=== PATIENT | male | born 1955 | race Two or more races ===

== ENCOUNTER 2016-07-26 09:54 | Emergency (ER) | payer OTHER ==
[2016-07-26 10:41] LABS: HEMATOCRIT 46.8 % (40.0-51.0); HEMOGLOBIN 16.1 g/dL (13.7-17.5); MEAN CELL HEMOGLOBIN 28.2 pg (27.9-34.1); MEAN CELL HEMOGLOBIN CONCENTR. 34.4 g/dL (32.4-36.7); RED BLOOD CELL COUNT 5.71 10^6/uL (4.40-6.38); RED CELL DISTRIBUTION WIDTH 12.7 % (11.5-15.2)
[2016-07-26] MEDS: MECLIZINE HCL 25 MG TAB PO ONE ×2 (10:58→11:16)
[2016-07-26 11:01] LABS: ALANINE AMINOTRANSFERASE 47 IU/L (21-72); ALBUMIN 3.7 g/dL (3.5-5.0); ALKALINE PHOSPHATASE 69 IU/L (38-126); ANION GAP 9 mEq/L (8-16); ASPARTATE AMINOTRANSFERASE 27 IU/L (17-59); CALCIUM 9.2 mg/dL (8.5-10.4); CARBON DIOXIDE 29 mEq/l (22-31); CHLORIDE 102 mEq/L (97-110); CREATININE 0.9 mg/dL (0.7-1.3); GLOMERULAR FILTRATION RATE > 60; GLUCOSE 104 mg/dL (70-100); POTASSIUM 4.1 mEq/L (3.5-5.2); SODIUM 140 mEq/L (134-144); TOTAL PROTEIN 6.6 g/dL (6.3-8.2)
[2016-07-26 11:10] LABS: TROPONIN I < 0.012 ng/mL (0-0.034)
[2016-07-26] MEDS ORDERED: ACETAMINOPHEN 500 MG TAB ONE (11:15)
[2016-07-26] MEDS ORDERED: ACETAMINOPHEN 325 MG TAB PO ONE (11:16)
--- NOTE | 2016-07-26 11:22 | DX ---
Chest, PA and Lateral July 26, 2016 History: Shortness of breath. Dizziness. Chest discomfort. Comparison: May 2016. Findings: Heart size is within normal limits. Lungs are clear of acute consolidation. Question mild p eribronchial wall thickening. No evidence for pleural effusion or pneumothorax. Degenerative change i s seen at the first costochondral junction bilaterally. Impression: Question mild bronchitis. No other findings for acute cardiopulmonary abnormality.
[2016-07-26 11:37] VITALS: RESP 16
--- NOTE | 2016-07-26 12:17 | UCPHY ---
H & P Patient Type: Established Chief Complaint Nursing Narrative: MULTIPLE COMPLAINTS - DIZZINESS, SHORTNESS OF BREATH, UPPER ABD TIGHTNESS, LEFT ARM MUSCLE ACHES FOR 3 WEEKS, S/SX HAVE INCREASED. Time Seen by Provider: 07/26/16 10:25 HPI/ROS: This patient has multiple somatic complaints. Over the past month he has had intermittent dizziness described as combination of lightheadedness and vertigo. He has episodes that are also associated with tight feeling in the upper abdomen occasional belly distention, dyspnea on exertion and dyspnea at rest. He reports that when this occurs gets a pounding feeling in his chest that does not feel that his heart is going fast but simply that is beating harder than usual. He also reports headache most days for the past month that is bilateral parietal in location. There is no clear exacerbating or alleviating factors for this headache was currently 2/10. Finally, he reports left arm achiness that feels muscular to him worsens with hand movements. Times he has a left elbow ache as well. his is worried that he might have CHF. ROS: Constitutional-No fevers or chills. HEENT- he does have mild nasal congestion No sore throat, he reports no coughing. pulmonary-He does have a feeling of wheeze and reports that this is longstanding and he had asthma as a child. cardiovascular- no clement heart palpitations -racing heart no significant orthostatics symptoms. He reports no lower extremity swelling that he does have mild calf pain which is chronic for him. GI: Mild abdominal bloating. Reports no lower belly pain. No nausea vomiting diarrhea or constipation. Integumentary -no rash neuro: No focal numbness tingling or weakness psychiatric -she denies depression or anxiety. They did move recently but no other new social stressors. Complete review of symptoms is otherwise negative Source: Patient Exam Limitations: No limitations - Medical/Surgical History Hx Asthma: No Hx Chronic Respiratory Disease: No Hx Diabetes: No Hx Cardiac Disease: No Hx Renal Disease: No Hx Cirrhosis: No Hx Alcoholism: No Hx HIV/AIDS: No Hx Splenectomy or Spleen Trauma: No Other PMH: htn - Family History Significant Family History: No pertinent family hx - Social History Smoking Status: Never smoked Alcohol Use: None Drug Use: None Additional Social History: he has a new job this started 3 months ago that he likes any feels is going well. The moved 2 months ago. - Physical Exam Exam: General Appearance: Alert, no distress. Eyes: Pupils equal and round no pallor or injection. ENT, Mouth: Mucous membranes moist. Respiratory: There are no retractions, lungs are clear to auscultation. Cardiovascular: Regular rate and rhythm.No murmur gallop or rub. No JVD. No peripheral edema. No calf tenderness Gastrointestinal: normoactive, soft, minimal epigastric tenderness. No guarding or rebound. No organomegaly. Neurological: Alert. No focal neuro deficits are appreciated. Skin: Warm and dry, no rashes. Musculoskeletal: Neck is supple nontender. Extremities are symmetrical, full range of motion. Psychiatric: Patient is mildly anxious. Mood and affect are other meeks normal DIFFERENTIAL DIAGNOSIS: After history and physical exam differential diagnosis was considered for anxiety with somatization, coronary syndrome, viral syndrome , tension headache, sinusitis, bronchitis, pneumonia Constitutional: Initial Vital Signs Temperature (C) 98.2 C H 07/26/16 10:15 Heart Rate 91 07/26/16 10:15 Respiratory Rate 18 07/26/16 10:15 Blood Pressure 171/94 H 07/26/16 10:15 O2 Sat (%) 94 07/26/16 10:15 O2 Delivery Mode Room Air Allergies/Adverse Reactions: tramadol Allergy (Severe, Verified 07/26/16 10:30) Anaphylaxis codeine Allergy (Intermediate, Verified 07/26/16 10:30) caffeine Allergy (Verified 07/26/16 11:03) Home Medications: Medication Instructions Recorded Acet/Caffeine/Buta Fioricet 1 each PO Q6 #15 tab 06/09/16 [Fioricet (*)] Amlodipine Besylate 10 mg PO DAILY #30 tablet 06/09/16 ASPIRIN 07/26/16 Fluticasone Hfa 220 Mcg [Flovent 2 puffs IH DAILY #1 mdi 07/26/16 220 MCG Hfa MDI (*)] HCTZ (*) 07/26/16 Levalbuterol Inhaler [Xopenex Hfa 2 puffs IH Q4 PRN #1 mdi 07/26/16 Inhaler] Lisinopril 07/26/16 Pantoprazole Sodium [Protonix 40mg 40 mg PO DAILY #30 tab 07/26/16 (*)] Medical Decision Making - Diagnostics EKG Interpretation: 12 lead EKG performed shortly after arrival at 10:29 a.m. reveals sinus rhythm at 79 Intervals: Normal throughout [place]: Normal throughout Overall assessment: Normal EKG Imaging: chest x-ray: Mild bronchitis otherwise normal by my interpretation ED Course/Re-evaluation: labs are reviewed-normal CBC, comp metabolic panel, BNP and troponin After workup, I find no evidence of pneumonia, pneumothorax, coronary syndrome or other concerning findings. I feel that most the symptoms are stemming from anxiety. I counseled patient regarding anxiety. . We spoke about the stress reduction techniques including regular exercise and relaxation techniques. The patient also may have mild bronchitis and reactive airway disease given his childhood history of asthma, mild dyspnea etc. Will provide him with Flovent and albuterol inhaler. I also feel he likely has an element of gastritis causing his epigastric discomfort and I counseled him regarding this. - Data Points Laboratory Results: Laboratory Results 07/26/16 10:33 07/26/16 10:33 Medications Given: Discontinued Medications Acetaminophen (Tylenol) 1,000 mg PO EDNOW ONE Stop: 07/26/16 11:17 Last Admin: 07/26/16 11:17 Dose: 1,000 mg Meclizine HCl (Meclizine Hcl) 25 mg PO EDNOW ONE Stop: 07/26/16 10:42 Last Admin: 07/26/16 11:16 Dose: Not Given Departure - Departure Disposition: Home, Routine, Self-Care Clinical Impression: Tension headache, Anxiety Reactive airway disease Qualifiers: Asthma severity: mild intermittent Asthma complication type: with acute exacerbation Qualifier Code: (J45.21) Mild intermittent asthma with (acute) exacerbation Condition: Good Instructions: Gastritis (ED), Reactive Airways Disease (ED), Anxiety (ED) Additional Instructions: Diagnoses: 1. Gastritis 2. Reactive airways 3. Tension headache 4. Anxiety Plan: Daily exercise 30 minutes or more Daily relaxation 20 minutes or more Protonix or Prilosec 40 mg a day as an antacid. Maalox in addition Tylenol if needed for headaches Flovent steroid inhaler Xopenex in addition if needed for cough, wheeze or shortness of breath Call primary physician for a follow-up appointment sometime in the next 5-10 days for any ongoing symptoms. Go to the emergency department if he has any significant worsening despite the treatment plan Referrals: Paloma Gallegos MD [Primary Care Provider] - As per Instructions Prescriptions: Fluticasone Hfa 220 Mcg [Flovent 220 MCG Hfa MDI (*)] 2 puffs IH DAILY #1 mdi Pantoprazole Sodium [Protonix 40mg (*)] 40 mg PO DAILY #30 tab Levalbuterol Inhaler [Xopenex Hfa Inhaler] 2 puffs IH Q4 PRN #1 mdi PRN Reason: Wheezing - PQRS PQRS Measurement: NA
[2016-07-26 12:36] VITALS: BP 119/77; PULSE 69; TEMP 97.7; O2SAT 93
--- NOTE | 2016-07-29 20:07 | CPEKG ---
Heart Rate: 79 RR Interval: 759 P-R Interval: 152 QRSD Interval: 100 QT Interval: 380 QTC Interval: 436 P [place]: 45 QRS [place]: 26 T Wave [place]: 49 EKG Severity - NORMAL ECG - EKG Impression: SINUS RHYTHM Electronically Signed By: Jeremiah Washington 30-Jul-2016 10:23:20
== END 2016-07-26 12:35 | disposition home or self-care (01) ==
LOC: CED 09:54
DX: G44.209 Tension-type headache, unspecified, not intractable (principal); J45.21 Mild intermittent asthma with (acute) exacerbation
CPT/HCPCS: 71020-PO; 80053-PO; 83880-PO; 84484-PO; 85027-PO; 93010-PO; 99215-PO; G0463-PO

== ENCOUNTER 2016-12-14 12:18 | Emergency (ER) | payer OTHER ==
--- NOTE | 2016-12-14 12:37 | EDPHY ---
H & P Time Seen by Provider: 12/14/16 12:29 HPI/ROS: Chief complaint. Shortness of breath HPI. 61-year-old male presents for to the emergency department with complaint of difficulty to take a deep breath and shortness of breath for 3 months. Symptoms are worse with walking and talking. Symptoms are not worse today but just continuing. He has not seen a physician for this. He did have similar symptoms in July 2016 and was seen in the urgent care. Diagnosis at that time asthma and anxiety. He occasionally has some upper abdominal discomfort that is worse with eating. However no abdominal pain vomiting or diarrhea. His symptoms are also worse with anxiety and stress and has occasional headaches and occasional palpitations. No fever or cough. No chest discomfort. Bilateral leg edema for long time not worse and no pain. Hypertensive urgency in May 2016 and now takes losartan and Norvasc for blood pressure control he occasionally gets tingling in his hands and legs and sense of lower leg weakness when his breathing is worse and he is stressed. However no bowel or bladder symptoms. ROS Constitutional. no fever/chills, no weakness Eyes. no problems with vision ENT. no sore throat, no nasal drainage Cardiovascular. no chest pain; occasional palpitations Respiratory. Shortness of breath without cough Abdominal. no abdominal pain, no nausea/vomiting, no diarrhea . no problems urinating MS. Long-time bilateral leg swelling Skin. no rash Lymph. no swollen glands Neuro. Headache on occasion Past Medical/Surgical History: Hypertension, hernia, anxiety No significant family history Social History: , nonsmoker, no alcohol Smoking Status: Never smoked Physical Exam: General Appearance: Alert well-developed male no distress vital signs are stable Eyes: Pupils equal and round no pallor or injection. ENT, Mouth: Mucous membranes are moist. Respiratory: There are no retractions, lungs are clear to auscultation. Cardiovascular: Regular rate and rhythm. Gastrointestinal: Abdomen is soft and nontender, no masses, bowel sounds normal. Neurological: Awake and alert, sensory and motor exams grossly normal. Skin: Warm and dry, no rashes. Musculoskeletal: Neck is supple nontender. Extremities symmetrical, full range of motion. Psychiatric: Patient is oriented X 3, there is no agitation. Constitutional: Initial Vital Signs Heart Rate 84 12/14/16 12:20 Respiratory Rate 18 12/14/16 12:20 Blood Pressure 169/93 H 12/14/16 12:20 O2 Sat (%) 99 12/14/16 12:20 O2 Delivery Mode Room Air Allergies/Adverse Reactions: tramadol Allergy (Severe, Verified 12/14/16 12:31) Anaphylaxis caffeine Allergy (Intermediate, Verified 12/14/16 12:31) Heart palpitations, sweats codeine Allergy (Intermediate, Verified 12/14/16 12:31) Respiratory depression Home Medications: Medication Instructions Recorded Losartan Potassium 12/14/16 Norvasc 12/14/16 Medical Decision Making - Diagnostics EKG Interpretation: EKG interpreted by me shows normal sinus rhythm with normal interval and axis. QRS is normal no significant ST elevation or depression. No arrhythmia. Heart rate is 72 EKG 2. Is unchanged from EKG 1. Rate is 79 Imaging Results: Imaging Impressions Chest X-Ray 12/14/16 12:38 Impression: Minimal bronchitis. No other findings for acute cardiopulmonary abnormality. Chest x-ray interpreted by me is normal Procedures: IV normal saline, monitor ED Course/Re-evaluation: Re-evaluation at 1:35 p.m.. Patient says that after the IV got shaky and had some sense of abdominal distention and then pressure to his chest. Symptoms continue. We will repeat an EKG Re-evaluation again at 2:40 p.m. patient is stable in his symptoms have resolved. He and I discussed imaging lab results and the 2 EKG results. We discussed importance of follow-up and further evaluation. He is offered admission as his symptoms do seem to bother him quite a bit many has them. Patient and I discussed risks and benefits admission versus going home. He expresses understanding and agreement of these risks but would prefer to be treated as an outpatient. I have encouraged him to follow up with his regular physician and return for any worsening symptoms. He is in agreement Differential Diagnosis: I considered pneumonia, pneumothorax, acute coronary syndrome, pancreatitis. This may be stress and anxiety as well - Data Points Laboratory Results: Laboratory Results 12/14/16 13:06 12/14/16 13:06 12/14/16 12/14/16 12/14/16 13:06 13:06 13:06 WBC RBC Hgb Hct MCV MCH MCHC RDW Plt Count MPV Neut % (Auto) Lymph % (Auto) [place] % (Auto) Eos % (Auto) Baso % (Auto) Nucleat RBC Rel Count Absolute Neuts (auto) Absolute Lymphs (auto) Absolute Monos (auto) Absolute Eos (auto) Absolute Basos (auto) Absolute Nucleated RBC Immature Gran % Immature Gran # D-Dimer < 0.27 ug/mLFEU ug/mLFEU (0.00-0.50) Sodium 140 mEq/L mEq/L (134-144) Potassium 3.9 mEq/L mEq/L (3.5-5.2) Chloride 103 mEq/L mEq/L (97-110) Carbon Dioxide 22 mEq/l mEq/l (22-31) Anion Gap 15 mEq/L mEq/L (8-16) BUN 13 mg/dL mg/dL (7-23) Creatinine 0.8 mg/dL mg/dL (0.7-1.3) Estimated GFR > 60 Glucose 91 mg/dL mg/dL (70-100) Calcium 9.1 mg/dL mg/dL (8.5-10.4) Troponin I < 0.012 ng/mL ng/mL (0-0.034) NT-Pro-B Natriuret Pep 25 pg/mL pg/mL (0-125) Lipase 92.0 IU/L IU/L (23-300) 12/14/16 13:06 WBC 6.26 10^3/uL 10^3/uL (3.80-9.50) RBC 5.73 10^6/uL 10^6/uL (4.40-6.38) Hgb 16.5 g/dL g/dL (13.7-17.5) Hct 46.7 % % (40.0-51.0) MCV 81.5 fL fL (81.5-99.8) MCH 28.8 pg pg (27.9-34.1) MCHC 35.3 g/dL g/dL (32.4-36.7) RDW 12.4 % % (11.5-15.2) Plt Count 265 10^3/uL 10^3/uL (150-400) MPV 9.6 fL fL (8.7-11.7) Neut % (Auto) 53.9 % % (39.3-74.2) Lymph % (Auto) 31.9 % % (15.0-45.0) [place] % (Auto) 8.9 % % (4.5-13.0) Eos % (Auto) 4.0 % % (0.6-7.6) Baso % (Auto) 1.0 % % (0.3-1.7) Nucleat RBC Rel Count 0.0 % % (0.0-0.2) Absolute Neuts (auto) 3.37 10^3/uL 10^3/uL (1.70-6.50) Absolute Lymphs (auto) 2.00 10^3/uL 10^3/uL (1.00-3.00) Absolute Monos (auto) 0.56 10^3/uL 10^3/uL (0.30-0.80) Absolute Eos (auto) 0.25 10^3/uL 10^3/uL (0.03-0.40) Absolute Basos (auto) 0.06 10^3/uL 10^3/uL (0.02-0.10) Absolute Nucleated RBC 0.00 10^3/uL 10^3/uL (0-0.01) Immature Gran % 0.3 % % (0.0-1.1) Immature Gran # 0.02 10^3/uL 10^3/uL (0.00-0.10) D-Dimer Sodium Potassium Chloride Carbon Dioxide Anion Gap BUN Creatinine Estimated GFR Glucose Calcium Troponin I NT-Pro-B Natriuret Pep Lipase Medications Given: Discontinued Medications Sodium Chloride (Ns) 1,000 mls @ 0 mls/hr IV ONCE ONE PRN Reason: Wide Open Stop: 12/14/16 12:39 Last Admin: 12/14/16 13:11 Dose: 1,000 mls Departure - Departure Disposition: Home, Routine, Self-Care Clinical Impression: Dyspnea Qualifiers: Dyspnea type: shortness of breath Qualified Code(s): R06.02 - Shortness of breath Condition: Good Instructions: Dyspnea (ED) Additional Instructions: Continue regular medications. Return for worsening symptoms including worsening breathing and worsening chest discomfort. Follow up with your regular healthcare provider in the next 2-3 days without fail Referrals: ASA[facility] PURDY [Other] - 2-3 days without fail
[2016-12-14] MEDS ORDERED: NS 1,000 ML IV ONE (12:38)
--- NOTE | 2016-12-14 13:03 | CPEKG ---
Heart Rate: 72 RR Interval: 833 P-R Interval: 112 QRSD Interval: 100 QT Interval: 408 QTC Interval: 447 P [place]: 15 QRS [place]: 35 T Wave [place]: 66 EKG Severity - NORMAL ECG - EKG Impression: SINUS RHYTHM Electronically Signed By: Avinash Sheppard 14-Dec-2016 14:49:43
[2016-12-14 13:32] LABS: ANION GAP 15 mEq/L (8-16); CALCIUM 9.1 mg/dL (8.5-10.4); CARBON DIOXIDE 22 mEq/l (22-31); CHLORIDE 103 mEq/L (97-110); CREATININE 0.8 mg/dL (0.7-1.3); GLOMERULAR FILTRATION RATE > 60; GLUCOSE 91 mg/dL (70-100); POTASSIUM 3.9 mEq/L (3.5-5.2); SODIUM 140 mEq/L (134-144)
[2016-12-14 13:46] LABS: TROPONIN I < 0.012 ng/mL (0-0.034)
[2016-12-14 14:08] VITALS: O2SAT 94
[2016-12-14 14:26] LABS: % IMMATURE GRANULYOCYTES 0.3 % (0.0-1.1); ABSOLUTE IMMATURE GRANULOCYTES 0.02 10^3/uL (0.00-0.10); ADD DIFF? NO; ADD MORPH? NO; ADD SCAN? NO; HEMATOCRIT 46.7 % (40.0-51.0); HEMOGLOBIN 16.5 g/dL (13.7-17.5); MEAN CELL HEMOGLOBIN 28.8 pg (27.9-34.1); MEAN CELL HEMOGLOBIN CONCENTR. 35.3 g/dL (32.4-36.7); MEAN CELL VOLUME 81.5 fL (81.5-99.8); MEAN PLATELET VOLUME 9.6 fL (8.7-11.7); PLATELET COUNT 265 10^3/uL (150-400); RED BLOOD CELL COUNT 5.73 10^6/uL (4.40-6.38); RED CELL DISTRIBUTION WIDTH 12.4 % (11.5-15.2)
[2016-12-14 14:59] VITALS: BP 117/65; PULSE 67; RESP 14; TEMP 97.5
--- NOTE | 2016-12-16 08:22 | CPEKG ---
Heart Rate: 79 RR Interval: 759 P-R Interval: 160 QRSD Interval: 104 QT Interval: 408 QTC Interval: 468 P [place]: 65 QRS [place]: 32 T Wave [place]: 60 EKG Severity - OTHERWISE NORMAL ECG - EKG Impression: SINUS RHYTHM EKG Impression: LOW VOLTAGE IN FRONTAL LEADS Electronically Signed By: Avinash Sheppard 16-Dec-2016 14:16:43
== END 2016-12-14 14:59 | disposition home or self-care (01) ==
LOC: CED 12:18
DX: R06.02 Shortness of breath (principal); I10 Essential (primary) hypertension
CPT/HCPCS: 71020-PO; 80048-PO; 83690-PO; 83880-PO; 84484-PO; 85025-PO; 85378-PO

== ENCOUNTER → 2016-12-29 | Outpatient (CLI) | payer OTHER | LOC: FIMAGING 07:22 | PROVIDERS: ATTEND Internal Medicine | DX: R14.0 Abdominal distension (gaseous) (principal) ==